=== PATIENT | female | born 1945 | race Caucasian/White ===

== ENCOUNTER 2017-04-29 15:52 | Emergency (ER) | payer BC, MEDICARE ==
[2017-04-29] MEDS ORDERED: PROCHLORPERAZINE INJ 5 MG/ML 2 ML VIAL IV ONE (16:40)
[2017-04-29 17:12] LABS: Hematocrit 27 % (35-47); Mean Corpuscular HGB Conc 33 g/dl (31-36); Mean Corpuscular Hemoglobin 32 pg (27-31); Mean Corpuscular Volume 95 fL (80-97); Mean Platelet Volume 10 um3 (7.4-10.4); Platelet Count 163 10^3/ul (150-450); Red Blood Count 2.85 10^6/ul (4.0-5.4); Red Cell Distribution Width 20 % (10.5-15); White Blood Count 32.5 10^3/ul (3.5-10.8)
[2017-04-29 17:21] LABS: INR 0.95 (0.77-1.02)
[2017-04-29 17:29] LABS: EGFR Non-African American 92.9 (>60)
[2017-04-29] MEDS: NS 0.9% 1000 ML* 2,000 ML IV ONE (17:29)
[2017-04-29 17:47] LABS: Urine Appearance Clear; Urine Blood 1+ (Negative); Urine Color Straw; Urine Ketones Negative (Negative); Urine Protein Negative (Negative); Urine Specific Gravity 1.003 (1.010-1.030); Urine Urobilinogen Negative (Negative)
--- NOTE | 2017-04-29 18:15 | RAD ---
Indication: Abdominal pain. Flat plate of the abdomen demonstrates no free air. No dilated loops of bowel are noted. The colon is filled with stool. IMPRESSION: Stool throughout the colon. Bowel gas pattern is unremarkable.
[2017-04-29 18:20] LABS: ABS Basophils 0.1 10^3/ul (0-0.2); ABS Eosinophils 0 10^3/ul (0-0.6); ABS Lymphocytes 0.5 10^3/ul (1.0-4.8); ABS Monocytes 0.6 10^3/ul (0-0.8); ABS Neutrophils 31.2 10^3/ul (1.5-7.7); ABS Nucleated RBC 0 10^3/ul; Eosinophil % 0.1 % (0-6); Lymphocyte % 1.7 % (25-47); Nucleated Red Blood Cells % 0
[2017-04-29] MEDS ORDERED: Bisacodyl SUPP* 10 MG SUPP PR ONE (19:00)
[2017-04-29] MEDS ORDERED: Magnesium CITRATE* 300 ML BTL PO ONE (19:00)
--- NOTE | 2017-04-29 19:23 | ED ---
Lucila Kelley Nilda, scribed for Maude Casper MD on 04/29/17 at 1649 . Complex/Multi-Sys Presentation - HPI Summary HPI Summary: This patient is a 72 year old F presenting to [facility] accompanied by with a chief complaint of constant palpitations since this morning. Patient reports SOB, constipation (4 days, self-enema yesterday), LLQ pain, dizziness, and chills (last night). Patient denies fever, dyspnea, and CP. Pt states she last urinated a few minutes ago. Patient states similar previous episode of symptoms when pt was Dx with dehydration. The patient rates the pain 7/10 in severity. Symptoms aggravated and alleviated by nothing including stool softener. Medications include Compazine (not taken today). Pt notes in 2000, she had cancer diagnosis in left breast. Last year had recurrence in right axillary lymphnode. She recently had surgery and is now on chemotherapy (last session was 2 days ago). She has O2 Sat at 100% on room air. - History Of Current Complaint Chief Complaint: EDDysrhythmPalp Time Seen by Provider: 04/29/17 16:16 Hx Obtained From: Patient Onset/Duration: Sudden Onset, Lasting Hours, Still Present Timing: Constant Severity Currently: Severe - 7/10 Location: Pain At: - LLQ Aggravating Factor(s): nothing Alleviating Factor(s): nothing Associated Signs And Symptoms: Positive: Other - palpitations, SOB, constipation (4 days, self-enema yesterday), LLQ pain, dizziness, and chills ( last night). Patient denies fever, dyspnea, and CP. Related History: Other - Recent chemo therapy - Allergies/Home Medications Allergies/Adverse Reactions: Allergies Allergy/AdvReac Type Severity Reaction Status Date / Time MS Peanut Oil [Peanut Oil] Allergy Intermediate Difficulty Verified 11/11/16 13: 17 Breathing PMH/Surg Hx/FS Hx/Imm Hx Endocrine/Hematology History: Denies: Hx Diabetes Cardiovascular History: Denies: Hx Hypertension, Hx Pacemaker/ICD History: Denies: Hx Renal Disease Sensory History: Denies: Hx Hearing Aid Psychiatric History: Denies: Hx Panic Disorder - Cancer History Cancer Type, Location and Year: LT BREAST - LUMPECTOMY Hx Chemotherapy: Yes - BREAST Hx Radiation Therapy: No - Surgical History Surgery Procedure, Year, and Place: LT MASTECTOMY - 2000. FOOT - Lt FOOT Infectious Disease History: No Infectious Disease History: Denies: Traveled Outside the [place] in Last 30 Days - Family History Known Family History: Negative: Hypertension, Diabetes Review of Systems Positive: Chills. Negative: Fever Positive: Palpitations. Negative: Chest Pain Positive: Shortness Of Breath, Other - negative dyspnea Positive: Abdominal Pain - diffuse, Other - constipation Neurological: Other - dizziness All Other Systems Reviewed And Are Negative: Yes Physical Exam - Summary Physical Exam Summary: VITAL SIGNS: Reviewed. GENERAL: Patient is a well-developed and nourished female who is anxious and aggressive. Patient is not in any acute respiratory distress. HEAD AND FACE: No signs of trauma. No ecchymosis, hematomas or skull depressions. No sinus tenderness. EYES: PERRLA, EOMI x 2, No injected conjunctiva, no nystagmus. EARS: Hearing grossly intact. Ear canals and tympanic membranes are within normal limits. MOUTH: Oropharynx within normal limits. NECK: Supple, trachea is midline, no adenopathy, no JVD, no carotid bruit, no c- spine tenderness, neck with full ROM. CHEST: Symmetric, no tenderness at palpation LUNGS: Clear to auscultation bilaterally. No wheezing or crackles. CVS: Tachycardic though improved significantly when pt laid down (120bpm reduced to 100bpm), S1 and S2 present, no murmurs or gallops appreciated. ABDOMEN: Soft, mild diffuse tenderness. No signs of distention. No rebound no guarding, and no masses palpated. Bowel sounds are hypoactive. EXTREMITIES: FROM in all major joints, no edema, no cyanosis or clubbing. NEURO: Alert and oriented x 3. No acute neurological deficits. Speech is normal and follows commands. SKIN: Dry and warm Triage Information Reviewed: Yes Vital Signs On Initial Exam: Initial Vitals Temp Pulse Resp BP Pulse Ox 98.7 F 173 18 141/65 100 04/29/17 15:54 04/29/17 15:54 04/29/17 15:54 04/29/17 15:54 04/29/17 15:54 Vital Signs Reviewed: Yes Diagnostics - Vital Signs Vital Signs Temp Pulse Resp BP Pulse Ox 04/29/17 15:54 98.7 F 173 18 141/65 100 - Laboratory Result Diagrams: 04/29/17 17:00 02/24/18 17:00 Lab Statement: Any lab studies that have been ordered have been reviewed, and results considered in the medical decision making process. - Radiology Abd XR Radiology Interpretation Completed By: Radiologist - Abd XR reveals stool throughout the colon. Bowel gas pattern is unremarkable. Dr. Casper has reviewed this radiology report. - EKG 1652 Cardiac Rate: NL EKG Rhythm: Sinus Rhythm - 91 bpm EKG Interpretation: Normal axis. Normal interval. No ischemic changes. Re-Evaluation - Re-Evaluation First Eval Re-Evaluation Time: 18:50 Change: Improved Comment: Pt has leukocytosis because she received Neulasta injection two days ago. Pt feels better after being given 2 L normal saline. Complex Multi-Symp Course/Dx Assessment/Plan: Pt is 72 y/o with Hx of breast CA. Pt is on chemotherapy and came in because she was having palpitations, weakness, and feelings of dehydration. Pt has had similar symptoms in the past with dehydration. Pt also c /o constipation, bloating, and abd pain. Pt feels better after treatment in ER. Pt will be D/C with Dx of constipation and dehydration. - Diagnoses Provider Diagnoses: Dehydration, Constipation Discharge - Discharge Plan Condition: Stable Disposition: HOME Patient Education Materials: Constipation (ED), Dehydration (ED) Referrals: Kyler Asher MD [Primary Care Provider] - 3 Days Additional Instructions: RETURN TO THE EMERGENCY DEPARTMENT FOR CHANGING OR WORSENING SYMPTOMS. The documentation as recorded by the Lucila olivia Nilda accurately reflects the service I personally performed and the decisions made by , Maude Casper MD.
[2017-04-29 20:00] VITALS: BP 124/57
== END 2017-04-29 20:07 | disposition home or self-care (01) ==
LOC: ED 15:52
DX: E86.0 Dehydration (principal); K59.00 Constipation, unspecified; R10.32 Left lower quadrant pain; R00.2 Palpitations; R06.02 Shortness of breath
CPT/HCPCS: 36415; 74019; 80053; 81003; 81015; 82150; 83605; 83690; 83735; 84443; 85025; 85610; 85730; 86140; 93005; 96372; 99283; A9270-GY; J0780

== ENCOUNTER 2017-05-27 16:26 | Observation (INO) | payer MEDICARE ==
[2017-05-27] MEDS ORDERED: NS 0.9% 1000 ML* 1,000 ML IV ONE (18:21)
[2017-05-27 19:00] LABS: Hematocrit 26 % (35-47); Hemoglobin 8.7 g/dl (12.0-16.0); Mean Corpuscular HGB Conc 33 g/dl (31-36); Mean Corpuscular Hemoglobin 33 pg (27-31); Mean Corpuscular Volume 99 fL (80-97); Platelet Count 180 10^3/ul (150-450); Red Blood Count 2.66 10^6/ul (4.0-5.4); Red Cell Distribution Width 18 % (10.5-15); White Blood Count 33.8 10^3/ul (3.5-10.8)
[2017-05-27 19:08] LABS: ABS Basophils 0.2 10^3/ul (0-0.2); ABS Eosinophils 0.1 10^3/ul (0-0.6); ABS Lymphocytes 0.7 10^3/ul (1.0-4.8); ABS Monocytes 0.5 10^3/ul (0-0.8); ABS Neutrophils 32.2 10^3/ul (1.5-7.7); ABS Nucleated RBC 0 10^3/ul; Eosinophil % 0.3 % (0-6); Lymphocyte % 2.1 % (25-47); Nucleated Red Blood Cells % 0
[2017-05-27 19:10] LABS: INR 0.92 (0.77-1.02)
--- NOTE | 2017-05-27 19:14 | RAD ---
HISTORY: Shortness of breath COMPARISONS: None VIEWS: 1: frontal portable view of the chest at 6:53 PM FINDINGS: LINES AND TUBES: A left-sided chest port is noted from a subclavian approach with the tip overlying the superior vena cava. CARDIOMEDIASTINAL SILHOUETTE: The cardiomediastinal silhouette is normal for portable technique. PLEURA: The costophrenic angles are sharp. No pleural abnormalities are noted. LUNG PARENCHYMA: The lungs are clear. ABDOMEN: The upper abdomen is clear. There is no subphrenic gas. BONES AND SOFT TISSUES: There is a scoliotic curvature of the spine. IMPRESSION: LINES AND TUBES ABOVE. NO ACTIVE CARDIOPULMONARY DISEASE.
[2017-05-27 19:17] LABS: EGFR Non-African American 91.2 (>60)
[2017-05-27 20:13] LABS: Urine Appearance Clear; Urine Blood Negative (Negative); Urine Color Yellow; Urine Ketones Negative (Negative); Urine Protein Negative (Negative); Urine Specific Gravity 1.009 (1.010-1.030); Urine Urobilinogen Negative (Negative)
[2017-05-27] MEDS ORDERED: Iohexol 350* (CONTRAST) 500 ML MDV IV ONE (20:14)
[2017-05-27] MEDS ORDERED: Senna TAB PO PRN (20:41)
[2017-05-27] MEDS ORDERED: Acetaminophen TAB* 325 MG PO PRN (20:41)
[2017-05-27] MEDS ORDERED: Al Hydrox/Mg Hydrox/Simet LIQ* 30 ML UDC PO PRN (20:41)
[2017-05-27] MEDS ORDERED: Docusate CAP* 100 MG PO PRN (20:41)
[2017-05-27] MEDS ORDERED: Ondansetron ODT TAB* 4 MG SL PRN (20:45)
[2017-05-27] MEDS ORDERED: Prochlorperazine TAB* 10 MG PO PRN (20:45)
--- NOTE | 2017-05-27 21:41 | RAD ---
HISTORY: Shortness of breath COMPARISONS: PET CT dated November 04, 2016 TECHNIQUE: Multiple contiguous axial CT scans of the chest were obtained after the administration of nonionic intravenous contrast, timed to the pulmonary arterial phase of contrast enhancement.. Coronal and sagittal multiplanar reformations are also submitted for review. FINDINGS: NECK AND THYROID: The lower neck and thyroid are unremarkable. CHEST WALL: There is no lower cervical, axillary, or supraclavicular lymphadenopathy by size criteria. A left-sided chest port is noted. HEART AND PERICARDIUM: The heart is unremarkable. AORTA AND PULMONARY VASCULATURE: There is no pulmonary arterial filling defect to suggest pulmonary embolism. There is no linear filling defect within the aorta to suggest aortic dissection. MEDIASTINUM: There is no mediastinal lymphadenopathy by size criteria. CONRAD: There is no hilar lymphadenopathy by size criteria. AIRWAY AND ESOPHAGUS: The airway is unremarkable, without endobronchial filling defect. The esophagus is grossly normal. LUNG PARENCHYMA: The lungs are clear. PLEURA: No pleural abnormalities are noted. UPPER ABDOMEN: The upper abdomen is unremarkable. BONES AND SOFT TISSUES: Again noted is a paravertebral mass on the right, similar in size and appearance to the previous examination. OTHER: None. IMPRESSION: 1. NO PULMONARY ARTERIAL FILLING DEFECT TO SUGGEST PULMONARY EMBOLISM. 2. STABLE RIGHT PARAVERTEBRAL MASS.
--- NOTE | 2017-05-27 21:42 | ED ---
Savi Kelley Elizabeth, scribed for Phillip Ambrosio on 05/27/17 at 1819 . HPI Cardiac - HPI Summary HPI Summary: The patient is a 72 year old female complaining of heart palpitations that began today. The patient additionally complains of weakness, dehydration, diarrhea, and shortness of breath. Per triage note, the patient also notes dizziness. Patient notes that she has been taking saline solution to clear out her intestines. The patient denies edema in her legs. Patient has been previously diagnosed with stage 3 breast cancer. Patients last chemo session was 2 day ago at [facility]. - History of Current Complaint Chief Complaint: EDDysrhythmPalp Stated Complaint: SOB,RAPID HEATBEAT Time Seen by Provider: 05/27/17 18:00 Hx Obtained From: Patient Onset/Duration: Started Weeks Ago Timing: Constant Current Severity: Mild Pain Intensity: 0 Pain Scale Used: 0-10 Numeric Character: Dyspnea at Rest Associated Signs and Symptoms: Positive: Weakness, Dizziness, Shortness of Breath, Other: - diarrhea, dehydration. Negative: Edema - Allergy/Home Medications Allergies/Adverse Reactions: Allergies Allergy/AdvReac Type Severity Reaction Status Date / Time peanut oil Allergy Difficulty Verified 04/29/17 20:06 Breathing Home Medications: Home Medications Ondansetron ODT TAB* [Zofran 4 MG Odt TAB*] 8 mg PO Q8H PRN 05/27/17 [History Confirmed 05/27/17] Prochlorperazine TAB* [Compazine Tab*] 10 mg PO Q6HR PRN 05/27/17 [History Confirmed 05/27/17] PMH/Surg Hx/FS Hx/Imm Hx Endocrine/Hematology History: Denies: Hx Diabetes Cardiovascular History: Denies: Hx Hypertension, Hx Pacemaker/ICD History: Denies: Hx Renal Disease Sensory History: Denies: Hx Hearing Aid Psychiatric History: Denies: Hx Panic Disorder - Cancer History Cancer Type, Location and Year: LT BREAST - LUMPECTOMY Hx Chemotherapy: Yes - BREAST Hx Radiation Therapy: No - Surgical History Surgery Procedure, Year, and Place: LT MASTECTOMY - 2000. FOOT - Lt FOOT Infectious Disease History: No Infectious Disease History: Denies: Traveled Outside the [place] in Last 30 Days - Family History Known Family History: Negative: Hypertension, Diabetes - Social History Alcohol Use: Rare Substance Use Type: Reports: None Smoking Status (MU): Never Smoked Tobacco Review of Systems Positive: Palpitations Positive: Shortness Of Breath Positive: Diarrhea, Other - dehydration Neurological: Other - dizziness Positive: Weakness All Other Systems Reviewed And Are Negative: Yes Physical Exam - Summary Physical Exam Summary: Appearance: Well appearing, no pain distress Skin: warm, dry, reflects adequate perfusion Head/face: normal Eyes: EOMI, NIKI ENT: normal, dry mucous membranes Neck: supple, non-tender Respiratory: CTA, breath sounds present Cardiovascular: RRR, pulses symmetrical Abdomen: non-tender, soft Bowel: present Musculoskeletal: normal, strength/ROM intact Neuro: normal, sensory motor intact, A&Ox3 Triage Information Reviewed: Yes Vital Signs On Initial Exam: Initial Vitals Temp Pulse Resp BP Pulse Ox 99.0 F 156 22 135/71 100 05/27/17 16:41 05/27/17 16:41 05/27/17 16:41 05/27/17 16:41 05/27/17 16:41 Vital Signs Reviewed: Yes Diagnostics - Vital Signs Vital Signs Temp Pulse Resp BP Pulse Ox 05/27/17 16:41 99.0 F 156 22 135/71 100 - Laboratory Lab Results: Lab Results 05/27/17 05/27/17 05/27/17 Range/Units 18:50 18:50 18:50 WBC 33.8 H (3.5-10.8) 10^3/ul RBC 2.66 L (4.0-5.4) 10^6/ul Hgb 8.7 L (12.0-16.0) g/dl Hct 26 L (35-47) % MCV 99 H (80-97) fL MCH 33 H (27-31) pg MCHC 33 (31-36) g/dl RDW 18 H (10.5-15) % Plt Count 180 (150-450) 10^3/ul MPV 10.0 (7.4-10.4) um3 Neut % (Auto) 95.4 H (38-83) % Lymph % (Auto) 2.1 L (25-47) % Sutter % (Auto) 1.5 (0-7) % Eos % (Auto) 0.3 (0-6) % Baso % (Auto) 0.7 (0-2) % Absolute Neuts (auto) 32.2 H (1.5-7.7) 10^3/ul Absolute Lymphs (auto) 0.7 L (1.0-4.8) 10^3/ul Absolute Monos (auto) 0.5 (0-0.8) 10^3/ul Absolute Eos (auto) 0.1 (0-0.6) 10^3/ul Absolute Basos (auto) 0.2 (0-0.2) 10^3/ul Absolute Nucleated RBC 0 10^3/ul Nucleated RBC % 0 INR (Anticoag Therapy) 0.92 (0.77-1.02) APTT 31.6 (26.0-36.3) seconds D-Dimer, Quantitative 300 H (Less Than 230) ng/mL Sodium (133-145) mmol/L Potassium (3.5-5.0) mmol/L Chloride (101-111) mmol/L Carbon Dioxide (22-32) mmol/L Anion Gap (2-11) mmol/L BUN (6-24) mg/dL Creatinine (0.51-0.95) mg/dL Est GFR ( Amer) (>60) Est GFR (Non-Af Amer) (>60) BUN/Creatinine Ratio (8-20) Glucose (70-100) mg/dL Lactic Acid (0.5-2.0) mmol/L Calcium (8.6-10.3) mg/dL Magnesium (1.9-2.7) mg/dL Total Bilirubin (0.2-1.0) mg/dL AST (13-39) U/L ALT (7-52) U/L Alkaline Phosphatase (34-104) U/L Troponin I (<0.04) ng/mL B-Natriuretic Peptide 199 H ( - 100) pg/mL Total Protein (6.4-8.9) g/dL Albumin (3.2-5.2) g/dL Globulin (2-4) g/dL Albumin/Globulin Ratio (1-3) Urine Color Urine Appearance Urine pH (5-9) Ur Specific [place] (1.010-1.030) Urine Protein (Negative) Urine Ketones (Negative) Urine Blood (Negative) Urine Nitrate (Negative) Urine Bilirubin (Negative) Urine Urobilinogen (Negative) Ur Leukocyte Esterase (Negative) Urine Glucose (Negative) 05/27/17 05/27/17 05/27/17 Range/Units 18:50 18:50 20:05 WBC (3.5-10.8) 10^3/ul RBC (4.0-5.4) 10^6/ul Hgb (12.0-16.0) g/dl Hct (35-47) % MCV (80-97) fL MCH (27-31) pg MCHC (31-36) g/dl RDW (10.5-15) % Plt Count (150-450) 10^3/ul MPV (7.4-10.4) um3 Neut % (Auto) (38-83) % Lymph % (Auto) (25-47) % Sutter % (Auto) (0-7) % Eos % (Auto) (0-6) % Baso % (Auto) (0-2) % Absolute Neuts (auto) (1.5-7.7) 10^3/ul Absolute Lymphs (auto) (1.0-4.8) 10^3/ul Absolute Monos (auto) (0-0.8) 10^3/ul Absolute Eos (auto) (0-0.6) 10^3/ul Absolute Basos (auto) (0-0.2) 10^3/ul Absolute Nucleated RBC 10^3/ul Nucleated RBC % INR (Anticoag Therapy) (0.77-1.02) APTT (26.0-36.3) seconds D-Dimer, Quantitative (Less Than 230) ng/mL Sodium 138 (133-145) mmol/L Potassium 3.7 (3.5-5.0) mmol/L Chloride 106 (101-111) mmol/L Carbon Dioxide 25 (22-32) mmol/L Anion Gap 7 (2-11) mmol/L BUN 15 (6-24) mg/dL Creatinine 0.64 (0.51-0.95) mg/dL Est GFR ( Amer) 117.3 (>60) Est GFR (Non-Af Amer) 91.2 (>60) BUN/Creatinine Ratio 23.4 H (8-20) Glucose 95 (70-100) mg/dL Lactic Acid 1.1 (0.5-2.0) mmol/L Calcium 9.2 (8.6-10.3) mg/dL Magnesium 1.9 (1.9-2.7) mg/dL Total Bilirubin 0.50 (0.2-1.0) mg/dL AST 17 (13-39) U/L ALT 16 (7-52) U/L Alkaline Phosphatase 58 (34-104) U/L Troponin I 0.07 H* (<0.04) ng/mL B-Natriuretic Peptide ( - 100) pg/mL Total Protein 6.3 L (6.4-8.9) g/dL Albumin 3.7 (3.2-5.2) g/dL Globulin 2.6 (2-4) g/dL Albumin/Globulin Ratio 1.4 (1-3) Urine Color Yellow Urine Appearance Clear Urine pH 8.0 (5-9) Ur Specific [place] 1.009 L (1.010-1.030) Urine Protein Negative (Negative) Urine Ketones Negative (Negative) Urine Blood Negative (Negative) Urine Nitrate Negative (Negative) Urine Bilirubin Negative (Negative) Urine Urobilinogen Negative (Negative) Ur Leukocyte Esterase Negative (Negative) Urine Glucose Negative (Negative) Result Diagrams: 05/27/17 18:50 05/27/17 18:50 Lab Statement: Any lab studies that have been ordered have been reviewed, and results considered in the medical decision making process. - Radiology CXR Xray Interpretation: No Acute Changes - IMPRESSION: LINES AND TUBES ABOVE. NO ACTIVE CARDIOPULMONARY DISEASE. Dr. Ambrosio has reviewed this report. Radiology Interpretation Completed By: Radiologist - EKG 16:49 Cardiac Rate: NL - at 98 BPM EKG Rhythm: Sinus Rhythm EKG Interpretation: NSR, no acute changes Disposition - Course Course Of Treatment: The patient presented with heart palpitations and shortness of breath. An EKG reveals NSR at 98 bpm with no acute changes. CXR negative. Dr. Ambrosio has reviewed this radiology report. Bloodwork obtained. In the ED course the patient was given IV fluids. We discussed patient care with Dr. Diaz and they recommended admitting the patient. Patient will be admitted to [facility] with diagnosis of dehydration, elevated troponin, and breast cancer. The patient is agreeable with this plan. - Differential Dx - Cardiopulmonary Differential Diagnoses - Cardiopulmonary: Bronchitis, Chest Wall Pain - pe/ pneumonia, Other - r/o pe - Diagnoses Provider Diagnoses: Dehydration, Elevated troponin, Breast cancer - Physician Notifications Discussed Care Of Patient With: Sara Diaz Instructed by Provider To: Admit As Inpatient Discharge - Sign-Out/Discharge Documenting (check all that apply): Discharge - Discharge Plan Condition: Stable Disposition: ADMITTED TO [facility] - Billing Disposition and Condition Condition: STABLE Disposition: [facility]OSP-[facility] The documentation as recorded by the Savi olivia Elizabeth accurately reflects the service I personally performed and the decisions made by , Phillip Ambrosio.
[2017-05-27] MEDS ORDERED: Aspirin EC Low Dose* 81 MG TAB.EC PO SCH (22:00)
[2017-05-27] MEDS: NS 0.9% 1000 ML* 1,000 ML IV SCH (22:15)
[2017-05-27] MEDS: Heparin VIAL(*) 5000 UNITS/ML VIAL (FIVE THOUSAND) SUBCUT SCH (22:18)
--- NOTE | 2017-05-27 22:37 | PN ---
Progress Note - Progress Note Date of Service: 05/27/17 Note: Per patient her oncologist states that she is not allowed to have aspirin due to the specific chemo she is on. Will hold it for now.
--- NOTE | 2017-05-28 00:41 | HP ---
CC: Kyler Asher MD * HISTORY AND PHYSICAL: DATE OF ADMISSION: 05/27/17 TIME OF EVALUATION: 2100. PRIMARY CARE PHYSICIAN: Kyler Asher MD CHIEF COMPLAINT: Palpitations and shortness of breath. HISTORY OF PRESENT ILLNESS: This is a 72-year-old female with a past medical history of breast cancer, undergoing chemotherapy, presents to the emergency room with palpitations and shortness of breath. The patient states she was diagnosed with breast cancer on the left side 16 years ago, had mastectomy, chemotherapy, and has been on tamoxifen. Her breast cancer returned back in October of last year on the right side. She was living in [place] initially with her first bout of cancer, wanted to return there, and get her care there. So, she has been getting her chemotherapy in [facility]. She drives back and forth. She just got her last chemo, which was done on 05/25/17. She came back yesterday, she has feeling okay. Today, she got up. She felt like she could not get her breath and she was having irregular palpitations with some mild chest discomfort. She states she tried to work through it, made soup, do laundry, but the shortness of breath and palpitations persisted, so her brought her to emergency room for further evaluation. She states that she tries to drink about 2 L of water per day. She has had some lightheadedness and dizziness and she thought this was contributing to her palpitations and shortness of breath. She denies any black stools or blood in her stool. She has not required any transfusion from her chemotherapy in the past. She denies any fever. No URI symptoms. No abdominal pain. No urinary symptoms. No headache. No nausea or vomiting. Otherwise, review of systems is negative. In the emergency room, the patient had labs and imaging and was referred to the hospitalist service for further evaluation. PAST MEDICAL HISTORY: 1. Diagnosed with left-sided breast cancer 17 years ago, status post mastectomy and chemotherapy. She has been on tamoxifen, diagnosed with recurrent breast cancer on the right side with lymph node involvement in October of 2016. Has completed 4 rounds of Adriamycin, Cytoxan, and is now getting 4 rounds of Taxol. She just completed her second round. She also recently had a lymph node resection. She gets her care at [facility]. 2. History of constipation. 3. 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 MEDICATIONS: 1. Compazine and Zofran as needed. 2. She was just on a Neulasta patch, removed yesterday, 05/26/17. 3. Aleve as needed. FAMILY HISTORY: Her mother from diabetes and stroke, age 62. Father at age 67 from coronary artery disease. SOCIAL HISTORY: She lives at home with her , Titi Murguia. He is her healthcare proxy; however, he seems to have not been diagnosed, but appears to have early-onset Alzheimer's. She is a never smoker or alcohol user. She is on vegan diet. Code status is full code. REVIEW OF SYSTEMS: A 14-point review of systems as mentioned in the HPI; otherwise, negative. PHYSICAL EXAMINATION GENERAL: No acute distress, resting comfortably with her at the bedside. VITAL SIGNS: Temp 99, pulse rate 83, respiratory rate 17, oxygen saturation 97 % on room air, blood pressure 119/47. HEENT: Head normocephalic. She has alopecia. Pupils equal and reactive. She is pale. Oropharynx, mucous membranes appear dry. NECK: Supple. No lymphadenopathy. RESPIRATORY: Clear to auscultation. No wheezing, rhonchi, rales. CARDIAC: Regular rate and rhythm. Soft systolic murmur heard throughout. ABDOMEN: Soft, nontender, nondistended. EXTREMITIES: No clubbing, cyanosis, or edema. +1 DPs. NEUROLOGIC: Alert and oriented x3. No gross focal neurologic deficits. DERM: She has a port on the left side of her chest. No surrounding erythema. DIAGNOSTIC STUDIES/LAB DATA: White count 33.8, hemoglobin 8.7, hematocrit 26, platelets 180. INR 0.92, D-dimer 300. Sodium 138, potassium 3.7, chloride 106 , bicarb 25, BUN 15, creatinine 0.64, magnesium 1.9. Troponin 0.07. BNP 199. Albumin 3.7. UA shows specific gravity of 1.009. Radiographic data: Chest x-ray, no active cardiopulmonary disease. EKG shows sinus rhythm with PACs. ASSESSMENT AND PLAN: This is a 72-year-old female with a past medical history of breast cancer, on chemotherapy, who presents to the emergency room with palpitations, shortness of breath. 1. Palpitations, shortness of breath. Assessment: The patient does have a modest bump in her troponin; otherwise, her workup is unremarkable. I am concerned for an underlying pulmonary embolism as she does commute back and forth from [facility] for her cancer care and she just returned yesterday, 05/26/17. She was concerned about dehydration. Based on labs, there are no findings of this. She also has been on Adriamycin in the past, which is cardiotoxic. Plan: We will admit her for observation, place her on telemetry, trend her troponin, follow up on the CTA of the chest, obtain an echocardiogram, and place her on gentle fluids, start her on a baby aspirin. CHRONIC MEDICAL PROBLEMS: 1. Breast cancer, on chemo. Her white count is likely related to her Neulasta. She had an elevated white count when she was here back in April. We will continue her Compazine and Zofran as needed and her bowel regimen as needed. 2. FEN. Regular diet with IV fluids. 3. DVT prophylaxis. The patient scores high risk. Place on heparin subcu t.i.d. unless the CTA shows that she does have a PE. 4. Code status. Full code. PATIENT TIME: Greater than 70 minutes spent doing history and physical, more than half the time spent in direct patient contact. [id number]/[facility] #: [id number] [place]
[2017-05-28] MEDS: Heparin VIAL(*) 5000 UNITS/ML VIAL (FIVE THOUSAND) SUBCUT SCH ×2 (05:48→15:10)
[2017-05-28] MEDS: NS 0.9% 1000 ML* 1,000 ML IV SCH (05:49)
[2017-05-28 06:19] LABS: Hematocrit 25 % (35-47); Hemoglobin 8.1 g/dl (12.0-16.0); Mean Corpuscular HGB Conc 33 g/dl (31-36); Mean Corpuscular Hemoglobin 33 pg (27-31); Mean Corpuscular Volume 99 fL (80-97); Mean Platelet Volume 9.8 um3 (7.4-10.4); Platelet Count 175 10^3/ul (150-450); Red Blood Count 2.49 10^6/ul (4.0-5.4); Red Cell Distribution Width 18 % (10.5-15); White Blood Count 31.9 10^3/ul (3.5-10.8)
[2017-05-28 06:21] LABS: ABS Basophils 0 10^3/ul (0-0.2); ABS Eosinophils 0.2 10^3/ul (0-0.6); ABS Lymphocytes 0.7 10^3/ul (1.0-4.8); ABS Monocytes 0.4 10^3/ul (0-0.8); ABS Neutrophils 30.6 10^3/ul (1.5-7.7); ABS Nucleated RBC 0 10^3/ul; Eosinophil % 0.7 % (0-6); Nucleated Red Blood Cells % 0
[2017-05-28 06:44] LABS: EGFR Non-African American 94.6 (>60)
--- NOTE | 2017-05-28 13:31 | ECHO ---
Patient: AUGUSTA ALMODOVAR [facility] Rec#: [id number] : 1945 Date: 05/28/2017 Age: 72y Height: 149.86 cm / 59.0 in Weight: 55.34 kg / 122.0 lbs Sex: F BSA: 1.49 Room#: 444 Admit Date#: 05/27/2017 Type: Inpatient Referring: Sara Diaz Reading: Nicanor Calderon MD Parking Enforcer: Serene Ambrose RDCS,RDMS CC: Kyler Asher MD Transthoracic Echocardiogram Indication: SOB BP: 118/47 HR: 75 Rhythm: NSR Findings History: Breast cancer, chemotherapy Technical Comments: The study quality is good. Left Ventricle: The left ventricular chamber size is normal. There is no left ventricular hypertrophy. The estimated ejection fraction is 55-60%. There is an E to A reversal in the mitral valve flow pattern suggestive of diastolic dysfunction.Grade 1, nl LAP. Left Atrium: The left atrial chamber size is normal. Right Ventricle: The right ventricular chamber size and systolic function are within normal limits. Right Atrium: The right atrial cavity size is normal. Aortic Valve: The aortic valve is trileaflet. There is no evidence of aortic valve thickening. There is trace to mild aortic regurgitation. There is no evidence of aortic stenosis. Mitral Valve: The mitral valve leaflets are mildly thickened. There is a trace of mitral regurgitation. There is no evidence of mitral stenosis. Tricuspid Valve: The tricuspid valve leaflets are normal. There is trace tricuspid regurgitation. Unable to estimate the right ventricular systolic pressure. Pulmonic Valve: The pulmonic valve structure is not well visualized. There is no evidence of pulmonic regurgitation. Pericardium: There is no significant pericardial effusion. Aorta: The aortic root appears normal. There is no dilatation of the aortic arch. Pulmonary Artery: The main pulmonary artery is not well visualized. Venous: The inferior vena cava appears normal in size. There is a greater than 50% respiratory change in the inferior vena cava dimension. Summary: There was not any prior study for comparison. Conclusions The estimated ejection fraction is 55-60%. There is an E to A reversal in the mitral valve flow pattern suggestive of diastolic dysfunction. Grade 1, normal LAP. There is trace to mild aortic regurgitation. There is a trace of mitral regurgitation. Measurements Name Value Normal Range RVIDd (AP) 2D 2 cm (0.9 - 2.6) RVDdMajor (2D) 1.2 cm (2.2 - 4.4) RAd ISD 4CH 4.2 cm (3.4 - 4.9) RA (A4C)W 2.4 cm (2.9 - 4.6) IVSd (2D) 0.8 cm (0.6 - 1) LVPWd (2D) 0.9 cm (0.6 - 1) LVIDd (2D) 4.3 cm (3.6 - 5.4) LVIDs (2D) 3.2 cm - LV FS (2D) 26 % (25 - 45) Aortic Annulus 2 cm (1.4 - 2.6) Ao root diameter (2D) 3.3 cm (2.1 - 3.5) Ascending Ao 3 cm (2.1 - 3.4) Aortic arch 3.4 cm (1.8 - 3.4) LA dimension (AP) 2D 3.2 cm (2.3 - 3.8) LAd ISD 4CH 4.4 cm (2.9 - 5.3) LA ISD 4CH W 3.7 cm (2.5 - 4.5) Name Value Normal Range LA ESV SP 4CH (A/L) 35.39 ml - LA ESV SP 4CH (MOD) 31.31 ml - Name Value Normal Range MV E-wave Vmax 0.7 m/sec - MV deceleration time 202 msec - MV A-wave Vmax 1 m/sec - MV E:A ratio 0.7 ratio - P. vein S-wave Vmax 0.5 m/sec - P. vein D-wave Vmax 0.3 m/sec - P. vein S:D Vmax ratio 1.7 ratio - P. vein A-wave duration 114 msec - LV septal e' Vmax 0.07 m/sec - LV lateral e' Vmax 0.08 m/sec - LV E:e' septal ratio 10 ratio - LV E:e' lateral ratio 9 ratio - Name Value Normal Range AV Vmax 1.5 m/sec - AV VTI 28 cm - AV peak gradient 9 mmHg - AV mean gradient 4.4 mmHg - LVOT Vmax 1 m/sec - LVOT VTI 22.3 cm - LVOT peak gradient 4 mmHg - LVOT mean gradient 2.1 mmHg - AR PHT 461.27 msec - AR peak gradient 43.45 mmHg - SOMMER Vmax 0.7 m/sec - Name Value Normal Range RAP 8 mmHg - IVC diameter 1.8 cm - Name Value Normal Range PV Vmax 0.9 m/sec - PV peak gradient 3.2 mmHg -
[2017-05-28 13:37] VITALS: BP 118/53
--- NOTE | 2017-05-29 05:07 | DS ---
CC: Dr. Kyler Asher; Dr. Stephen Carney * DISCHARGE SUMMARY: DATE OF ADMISSION: 05/27/17 DATE OF DISCHARGE: 05/28/17 PRIMARY CARE PROVIDER: Dr. Kyler Asher. PRIMARY ONCOLOGIST: Dr. Stephen Carney at [facility]. MY ATTENDING WHILE IN THE HOSPITAL: Dr. Denis Figueroa.* (DICTATED BY KAREL GOVEA) PRIMARY DISCHARGE DIAGNOSES: 1. Palpitations. 2. Dehydration. 3. Shortness of breath. 4. Anemia. SECONDARY DISCHARGE DIAGNOSES: 1. Breast cancer. 2. Peripheral neuropathy. STUDIES DONE WHILE IN THE HOSPITAL: Electrocardiogram from 05/27/17 shows frequent PACs, normal axis, normal sinus rhythm, no ST segment abnormalities, QTc 436 and rate of 98, no blocks, hypertrophy, or enlargement, no other abnormalities. Chest x-ray from 05/27/17 shows lines and tubes as above, no active cardiopulmonary disease. Chest thorax CTA from 05/27/17 read as no pulmonary arterial filling defect, just pulmonary embolism, stable right paravertebral mass. A transthoracic echocardiogram from 05/27/17 read as estimated ejection fraction 55% to 60%, there is an E/A reversal, mitral valve flow pattern suggestive of diastolic dysfunction grade 1, normal LAP, there is [id number] aortic regurgitation, there is trace mitral regurgitation. MEDICATIONS AT DISCHARGE: 1. Compazine 10 mg p.o. q.6h. as needed. 2. Zofran 8 mg p.o. q.8h. as needed. 3. Tylenol 650 mg p.o. q.4h. as needed. Has a new medication on discharge: Tylenol. HOSPITAL COURSE: This is a brief summary of the patient's presentation. For more details, please see the history and physical from Dr. Sara Diaz on . In brief, the patient is a 72-year-old female with past medical history significant for the above, who came back from chemotherapy at [facility] [place] on 05/26/17 after having her last dose of chemo with Cytoxan on 05/25/17. The patient had 4 rounds of Adriamycin and Cytoxan and is now on round 2 of 4 of Taxol. The patient on her previous when she initially was diagnosed with breast cancer 16 years ago, she had also had doses of Adriamycin, but she cannot remember other chemotherapies. The patient on the day of admission had shortness of breath and palpitations with mild chest discomfort, but did not rest and the shortness of breath and palpitations worsened. The patient drinks 2 L of water a day, notes no change in her urine. She has had no black stools or blood in her stool. The patient states that she felt similarly to this in the emergency department when she came on . The patient's previous episode also occurred after chemotherapy administration. The patient came to the hospital and received 2 L of IV fluids. The patient felt much better overnight with the infusion of IV fluids. The patient's telemetry showed no persistent ectopic activity. The patient had no chest pain. The patient had no shortness of breath with exertion. The patient's transthoracic echocardiogram was read as above. The patient when she came to the hospital had white blood cell count of 33.8 and hemoglobin 8.7. The patient had a Neulasta patch, which was taken off on 05/26/17, and this white blood cell count is consistent with her white blood cell count from when she was seen for this same complaint. The patient had a D-dimer, which was elevated at 300, but negative CTA of the chest. The patient had elevated BUN to creatinine ratio. The patient had a slightly elevated troponin at 0.07, 0.09, 0.09 and slightly elevated BNP. The patient had no urinary symptoms. The patient's hemoglobin dropped from 8.7 to 8.1 on second day of her admission. This was after receiving almost 2 L of fluid. The patient's white blood cell count was stable. The patient had no other electrolyte abnormalities and a decreased BUN to creatinine ratio on 05/28/17. The patient states she felt better and was comfortable going home on 05/28/17. PHYSICAL EXAMINATION ON DAY OF DISCHARGE: General: The patient is a 72-year- old female, who appears stated age and sitting comfortably in the chair in no acute distress. Vital signs at time of discharge; temperature 99.7, pulse rate 78, respiratory rate 16, oxygen saturation 100, and blood pressure 118/53. HEENT: Head normocephalic, atraumatic. Sclerae anicteric. No conjunctival injection. Nasal mucosa moist. Oral mucosa moist. No pharyngeal erythema, discharge or exudate. Neck: Supple, nontender. No lymphadenopathy. No carotid bruit auscultated. Cardiac: Regular rate and rhythm. No clicks, murmurs, gallops or rubs. Pulses 2+ in the bilateral dorsalis pedis and posterior tibialis and radial areas. Nondisplaced PMI. No S1 or S2 present. Respiratory: Clear to auscultation bilaterally. No wheezes, rales, or rhonchi. Good air exchange bilaterally. Abdomen: Soft, nontender, nondistended. Bowel sounds present, normoactive in all 4 quadrants. No hepatosplenomegaly. No abdominal bruits auscultated. Genitourinary: No suprapubic or CVA tenderness. Skin: Clean, dry, and intact. No rash. The patient has alopecia probably to chemotherapy. Neuro: Cranial nerves II through XII intact. No focal deficits. Alert and oriented x3. Normal gait. Psychiatric: Very pleasant, cooperative. LABORATORY DATA: On the day of discharge; white blood cell count 31.9, hemoglobin 8.1, MCV 99, MCH 33, RDW 18, neutrophil percent 95.9. Sodium 140, potassium 4.0, chloride 111, carbon dioxide 24, anion gap 5, BUN 10, creatinine 0.62, glucose 82, calcium 8.6. All other pertinent laboratory data from admission; BNP on admission 119, troponin 0.07, 0.09, 0.09. D-dimer 300, ABG 31.9, INR 0.92. Benign urine. DISCHARGE PLAN: The patient will be discharged to home with the help of her . The patient has been instructed to limit activity on days after she receives chemotherapy to rest and drink plenty of fluids. The patient appears dehydrated despite drinking plenty of water. The patient was instructed to drink electrolytes as well to help maintain her intravascular volume. The patient should have a repeat CBC done in 5 days to monitor her anemia, which will be sent to her primary care provider and her oncologist. The patient should return to hospital for alarming symptoms such as chest pain, shortness of breath, syncope, or persistent palpitations. The patient should continue with her chemotherapy regimen per her oncologist. The patient should otherwise engage in activities as tolerated and have a regular unrestricted diet without trying to avoid excessive caffeine. TIME SPENT: Approximately 60 minutes was spent on this discharge, 30 of which was spent [id number] with the patient obtaining history and physical and discussing treatment plan. KAREL GOVEA [id number]/YARELI #: [id number] ROSEMARY
== END 2017-05-28 16:19 | disposition home or self-care (01) ==
LOC: ED 16:26 → MEDTELE 20:41
PROVIDERS: ADMIT Pediatrics; ATTEND Pediatrics
DX: R00.2 Palpitations (principal); E86.0 Dehydration; R06.02 Shortness of breath; C50.919 Malignant neoplasm of unspecified site of unspecified female breast; D64.9 Anemia, unspecified; G62.9 Polyneuropathy, unspecified; Z79.899 Other long term (current) drug therapy; R07.9 Chest pain, unspecified; R74.8 Abnormal levels of other serum enzymes; I49.1 Atrial premature depolarization
CPT/HCPCS: 36415; 71045; 71275; 80048; 80053; 81003; 83605; 83735; 83880; 84484; 85025; 85379; 85610; 85730; 93005; 93306; 96360; 96361; 99284; A9270-GY; G0378; J1642; Q9967

== ENCOUNTER 2018-06-12 09:17 | Emergency (ER) | payer MEDICARE ==
--- NOTE | 2018-06-12 09:37 | ED ---
Syncope/Near Syncope - HPI Summary HPI Summary: A 73 y/o female brought in by ambulance presents to [facility] with a chief complaint of a syncopal episode earlier today. She reports that she was having breakfast with her when an argument escalated. She then left the room and then had a syncopal episode. She doesn't remember the fall, but believes that she lost consciousness for a few seconds. She reports some palpitations before her syncopal episode. She then was woken up by her and had left shoulder pain. At triage she rated her pain as a 9/10 in severity. - History Of Current Complaint Chief Complaint: EDSyncope Time Seen by Provider: 06/12/18 09:18 Hx Obtained From: Patient, EMS Onset/Duration: Sudden Onset, Lasting Minutes, Resolved Timing: Intermittent Episode Lasting - 1 episode lasting seconds Context: Other - was presents, but maybe didn't witness the fall Activity At Onset: Other - standing Associated Head Trauma: No Aggravating Factor(s): Nothing Alleviating Factor(s): Nothing Associated Signs And Symptoms: Other - shoulder pain - Allergies/Home Medications Allergies/Adverse Reactions: Allergies Allergy/AdvReac Type Severity Reaction Status Date / Time peanut oil Allergy Difficulty Verified 04/29/17 20:06 Breathing Home Medications: Home Medications Naproxen Sodium [Aleve] 440 mg PO TID PRN 06/12/18 [History Confirmed 06/12/18] PMH/Surg Hx/FS Hx/Imm Hx Endocrine/Hematology History: Denies: Hx Diabetes Cardiovascular History: Denies: Hx Hypertension, Hx Pacemaker/ICD History: Denies: Hx Renal Disease Sensory History: Denies: Hx Contacts or Glasses, Hx Hearing Aid Opthamlomology History: Denies: Hx Contacts or Glasses Psychiatric History: Denies: Hx Panic Disorder - Cancer History Cancer Type, Location and Year: LT BREAST - mastectomy. right breast lymph nodes removed Hx Chemotherapy: Yes - BREAST Hx Radiation Therapy: No - Surgical History Surgery Procedure, Year, and Place: LT MASTECTOMY - 2000. FOOT - Lt FOOT. right breast lymphedectomy Infectious Disease History: No Infectious Disease History: Denies: Traveled Outside the [place] in Last 30 Days - Family History Known Family History: Negative: Hypertension, Diabetes - Social History Alcohol Use: Rare Substance Use Type: Reports: None Smoking Status (MU): Never Smoked Tobacco Review of Systems Negative: Fever Positive: Palpitations Positive: Arthralgia - left shoulder Positive: Syncope All Other Systems Reviewed And Are Negative: Yes Physical Exam - Summary Physical Exam Summary: GENERAL: Patient is a well-developed and nourished F who is lying comfortable in the stretcher. Patient is not in any acute respiratory distress. HEAD AND FACE: Normocephalic EYES: PERRLA, EOMI x 2. EARS: Hearing grossly intact. MOUTH: Oropharynx within normal limits. NECK: Supple, trachea is midline, no adenopathy, no JVD, no carotid bruit. CHEST: Symmetric, no tenderness at palpation LUNGS: Clear to auscultation bilaterally. No wheezing or crackles. CVS: Regular rate and rhythm, S1 and S2 present, no murmurs or gallops appreciated. ABDOMEN: Soft, non-tender. Bowel sounds are normal. No abdominal abnormal pulsations. EXTREMITIES: TTP left shoulder. Full ROM in all major joints, no edema, no cyanosis or clubbing. NEURO: Alert and oriented x 3. No acute neurological deficits. Speech is normal and follows commands. SKIN: Dry and warm Triage Information Reviewed: Yes Vital Signs On Initial Exam: Initial Vitals Temp Pulse Resp BP Pulse Ox 97.8 F 62 16 151/67 100 06/12/18 09:23 06/12/18 09:23 06/12/18 09:23 06/12/18 09:23 06/12/18 09:23 Vital Signs Reviewed: Yes Diagnostics - Vital Signs Vital Signs Temp Pulse Resp BP Pulse Ox 06/12/18 09:37 62 158/74 06/12/18 09:23 97.8 F 62 16 151/67 100 - Laboratory Result Diagrams: 06/12/18 09:49 06/12/18 09:49 Lab Statement: Any lab studies that have been ordered have been reviewed, and results considered in the medical decision making process. - Radiology shoulder x-ray Radiology Interpretation Completed By: Radiologist Summary of Radiographic Findings: 1. OSTEOPENIA. 2. OSTEOARTHRITIS. 3. NO ACUTE OSSEOUS INJURY. THE DEGREE OF OSTEOPENIA MAY MAKE A NONDISPLACED FRACTURE. RADIOGRAPHICALLY OCCULT. IF SYMPTOMS PERSIST, RECOMMEND REPEAT IMAGING. ED physician has reviewed this imaging report. CXR Radiology Interpretation Completed By: Radiologist Summary of Radiographic Findings: NO EVIDENCE FOR ACUTE FINDING. ED physician has reviewed this imaging report. - CT Brain CT Interpretation Completed By: Radiologist Summary of CT Findings: NO ACUTE INTRACRANIAL PATHOLOGY. ED physician has reviewed this imaging report. - EKG 09:53 Cardiac Rate: Bradycardia - 57 bpm EKG Rhythm: Sinus Bradycardia Summary of EKG Findings: Sinus bradycardia at 57 bpm, normal intervals, no ischemic changes Re-Evaluation - Re-Evaluation First Eval Re-Evaluation Time: 11:31 Change: Unchanged Comment: Discussed results and plan for admission. Course/Dx Course Of Treatment: A 73 y/o female brought in by ambulance presents to [facility] with a chief complaint of a syncopal episode earlier today. She also reports left shoulder pain after her episode and palpitations before her syncopal episode. The physical exam showed TTP left shoulder. EKG at 09:53 showed Sinus bradycardia at 57 bpm, normal intervals, no ischemic changes. Brain CT impression: NO ACUTE INTRACRANIAL PATHOLOGY. Shoulder x-ray: 1. OSTEOPENIA. 2. OSTEOARTHRITIS. 3. NO ACUTE OSSEOUS INJURY. THE DEGREE OF OSTEOPENIA MAY MAKE A NONDISPLACED FRACTURE. RADIOGRAPHICALLY OCCULT. IF SYMPTOMS PERSIST, RECOMMEND REPEAT IMAGING. CXR impression: NO EVIDENCE FOR ACUTE FINDING. The patient will be admitted. Case discussed with Dr. Gill, hospitalist. I discussed results with patient. The patient agrees with this plan. When the hospitalist was at bedside the patient changed her mind, wanting to leave to take care of her . A social science manager was brought in to talk with the patient but the patient was still adamant about leaving AMA. We discussed risks of leaving AMA and the patient appeared alert, oriented and capable of making her own decisions. She then left AMA. - Diagnoses Provider Diagnoses: Syncope - Physician Notifications Discussed Care of Patient With: Rita Gill Time Discussed With Above Provider: 11:44 Instructed by Provider To: Admit As Inpatient Discharge - Sign-Out/Discharge Documenting (check all that apply): Patient Departure - AMA Patient Received Moderate/Deep Sedation with Procedure: No - Discharge Plan Condition: Fair Disposition: AGAINST MEDICAL ADVICE Referrals: Kyler Asher MD [Primary Care Provider] - - Billing Disposition and Condition Condition: FAIR Disposition: Against Medical Advice - Attestation Statements Document Initiated by Scribe: Yes Documenting Scribe: Rosalio Mota Provider For Whom Scribe is Documenting (Include Credential): Rian Beckham MD Scribe Attestation: I, Rosalio Mota, scribed for Rian Beckham MD on 06/13/18 at 1233. Scribe Documentation Reviewed: Yes Provider Attestation: The documentation as recorded by the scriboRsalio quiroz accurately reflects the service I personally performed and the decisions made by me, Sharan Beckham MD Status of Scribe Document: Viewed
[2018-06-12] MEDS ORDERED: NS 0.9% 1000 ML** 1,000 ML IV ONE (09:41)
[2018-06-12] MEDS ORDERED: Acetaminophen TAB* 325 MG PO ONE (09:41)
[2018-06-12 10:01] LABS: Urine Appearance Clear; Urine Bilirubin Negative (Negative); Urine Blood Negative (Negative); Urine Color Yellow; Urine Glucose Negative (Negative); Urine Ketones Negative (Negative); Urine Nitrite Negative (Negative); Urine Protein Negative (Negative); Urine Specific Gravity 1.009 (1.010-1.030); Urine Urobilinogen Negative (Negative)
[2018-06-12 10:11] LABS: ABS Lymphocytes 0.9 10^3/ul (1.0-4.8); ABS Neutrophils 3.2 10^3/ul (1.5-7.7); Hematocrit 37 % (33-41); Hemoglobin 12.4 g/dL (12.0-16.0); Mean Corpuscular HGB Conc 34 g/dL (31-36); Mean Corpuscular Hemoglobin 32 pg (27-31); Mean Corpuscular Volume 95 fL (80-97); Mean Platelet Volume 9.7 fL (7.4-10.4); Platelet Count 189 10^3/uL (150-450); Red Blood Count 3.87 10^6 /uL (3.70-4.87); Red Cell Distribution Width 14 % (10.5-15); White Blood Count 4.6 10^3/uL (3.5-10.8)
[2018-06-12 10:12] LABS: ABS Basophils 0 10^3/ul (0-0.2); ABS Eosinophils 0.1 10^3/ul (0-0.6); ABS Monocytes 0.4 10^3/ul (0-0.8); ABS Nucleated RBC 0 10^3/ul; Eosinophil % 1.7 %; Lymphocyte % 18.7 %; Nucleated Red Blood Cells % 0.1
[2018-06-12 10:16] LABS: Activated Partial Thrombo Time 30.9 seconds (26.0-36.3); INR 0.83 (0.77-1.02)
[2018-06-12 10:50] LABS: Albumin 4.2 g/dL (3.2-5.2); Calcium 9.6 mg/dL (8.6-10.3); Magnesium 1.9 mg/dL (1.9-2.7); Potassium 3.8 mmol/L (3.5-5.0); Total Bilirubin 0.6 mg/dL (0.2-1.0)
[2018-06-12 10:55] LABS: Albumin/Globulin Ratio 1.4 (1-3); BUN/Creatinine Ratio 27.1 (8-20); EGFR African American 99.2 (>60); Globulin 2.9 g/dL (2-4); Total Protein 7.1 g/dL (6.4-8.9)
[2018-06-12 11:28] LABS: TSH (Thyroid Stimulating Horm) 2.39 mcIU/mL (0.34-5.60)
--- NOTE | 2018-06-12 13:49 | CONS ---
CC: Dr. Dupree* CONSULTATION REPORT: ADDENDUM: DATE OF CONSULTATION: 06/12/18. PRIMARY CARE PROVIDER: Dr. Dupree. HISTORY OF PRESENT ILLNESS: Ms. Garcia is a 73-year-old lady with a past medical history of left-sided breast CA 17 years ago, status post mastectomy and chemotherapy, on tamoxifen, diagnosed with recurrent breast cancer on the right in October 2016, completed 4 rounds of Adriamycin and Cytoxan and also got 4 rounds of Taxol. She follows at the [facility] [place]. She also has history of peripheral neuropathy secondary to chemotherapy, who presented to the emergency room after a syncopal episode. As per her report, the patient was having an argument with her , who has dementia, and the next thing she remembers is being on the garage floor and complaining of left shoulder pain. The case was reviewed and discussed with KAREL Keating, and original plan was to have the patient admitted for further workup. Her labs were reviewed as well as her radiology studies and EKG, but unfortunately the patient stated that she cannot be admitted. She is under a great amount of stress due to her 's dementia, the fact that she is selling her home and in the process of moving to [place] to be near family. We talked about her staying overnight to have further workup. I told her that we suspect her episode was vasovagal, but with an incomplete workup, we cannot rule out life- threatening diseases including a heart attack or another serious arrhythmia. The patient is alert, awake, and oriented x3, and I believe that she has the capacity to sign out against medical advice. She was advised that she should return to the nearest emergency room if she develops symptoms. She states that she will follow up with Dr. Dupree as soon as possible, so he could complete her workup as outpatient considering even an echocardiogram or a Holter monitor in the outpatient setting. 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 [id number]/[facility] #: [id number] [facility] HOSPITALGayal
--- NOTE | 2018-06-12 14:31 | CONS ---
CC: Anthony Dupree MD* CONSULTATION REPORT: DATE OF CONSULTATION: 06/12/18 PRIMARY CARE PROVIDER: Anthony Dupree MD ATTENDING PHYSICIAN: Rita Dai MD* (dictated by KAREL Keating). CHIEF COMPLAINT: 1. Syncope. 2. Left shoulder pain. HISTORY OF PRESENT ILLNESS: Ms. Garcia is a 73-year-old female with past medical history of breast cancer, who presented to the ER today via ambulance after a syncopal episode. The patient states that her and her , who has dementia, were having a heated discussion. She was advised that when this happens to slowly and quietly walk into the next room to avoid further confrontation. When she did this, her started to walk towards her quickly. She states that despite knowing that she would not be harmed by him, she became scared. She started to hyperventilate and became dizzy. She notes that she reached for a chair, and then lost consciousness. She states that she believes she was unconscious for 2 to 3 minutes, but is unsure of the amount of time. She awoke on her left side with the headache and left shoulder pain. She is unsure if she hit her head or not. The patient states that she has no prior history of syncopal events. She denies dizziness or lightheadedness with standing. She denies a history of seizures. She does and continues to have palpitations with excitement since chemo at the beginning of 2018 which lasted 4 months. She denies palpitations at rest. She denies chest pain or shortness of breath. She describes an increase in the amount of stress in her life at this point in time. She states that she has been attempting to sell her home in [place] and to move back to [place], where her oncologist and exhibition carver are as well as family and friends. The patient states that it has been difficult recently taking care of her who again has dementia. She states that she does not have social support in the area. With all of this stress, she believes that she has become overwhelmed which caused this event. While in the ER, the patient received a full workup which included chest x-ray, left shoulder x-ray, head CT, 1 L of normal saline, and acetaminophen. The hospitalist team were asked to evaluate the patient for admission. PAST MEDICAL HISTORY: History of breast cancer x2. PAST SURGICAL HISTORY: Left mastectomy in 2000; right axillary lymph node removal - multiple in 2018 followed by 4 months of chemo and 6 weeks of radiation, left foot. HOME MEDICATIONS: Aleve p.r.n. ALLERGIES: PEANUT OIL, difficulty breathing. FAMILY HISTORY: Positive for atherosclerosis, CVA, diabetes. SOCIAL HISTORY: The patient has never used tobacco. She states she drinks wine occasionally. She lives with her who has dementia. They currently live in [place] and are attempting to sell their home in order to move back to [place]. At this time, she will not appoint a surrogate decision maker. REVIEW OF SYSTEMS: A 10-point review of systems was performed and all the pertinent positives and negatives are in the HPI. All other systems are negative. PHYSICAL EXAM: General: Ms. Garcia is a well-developed, well-nourished, healthy- looking white woman who is sitting up in bed. She is in no acute distress. Vital Signs: Temperature 97.8 temporal, heart rate 58, respiratory rate 17, oxygen saturation 100% on room air, blood pressure 157/66. HEENT: Visual avery are grossly intact. Pupils are equally round and reactive to light. Extraocular movements are intact. Sclerae are without icterus. Hearing is grossly intact. Oral mucous membranes are moist. There are no lesions. Pharynx is clear. Neck: With full range of motion. Trachea at midline. There is no lymphadenopathy. Cardiovascular: Regular rate and rhythm with S1, S2 present. There is a slight systolic murmur. There are no rubs or gallops. There is no JVD. Respiratory: Symmetrical chest expansion with no use of accessory muscles. Lungs are clear to auscultation. There are no rhonchi, wheezes, or rubs. Abdomen: Bowel sounds in all quadrants. The abdomen is soft and nontender to palpation. There is no hepatosplenomegaly. Musculoskeletal: Full range of motion with no pain or deformities. Extremities : Skin is warm and smooth bilaterally. There is no edema, clubbing, or cyanosis. Radial and pedal pulses are palpable. Neuro: The patient is awake. She is alert and oriented. She is able to move all her extremities. DIAGNOSTIC STUDIES/LAB DATA: [facility] CT, 06/12/18, impression: No acute intracranial pathology. Left shoulder x-ray, 06/12/18, impression: Osteopenia, osteoarthritis. No acute osseous injury. The degree of osteopenia may make a nondisplaced fracture radiographically occult. If symptoms persist, recommend repeat imaging. Chest x-ray, 06/12/18, no evidence for acute findings. WBC 4.6, RBC 3.87, HGB 12.4, HCT 37, platelets 189. Sodium 140, potassium 3.8, chloride 107, carbon dioxide 25, anion gap 8, BUN 19, creatinine 0.70. Glucose 89, lactic acid 2.0, magnesium 1.9. Troponin 0.00. BNP 71. TSH 2.39. ASSESSMENT AND PLAN: Ms. Garcia is a 73-year-old female with past medical history of breast cancer who presents to the ER today after a syncopal event. It is likely that this was due to a vasovagal reaction, but other causes cannot be ruled out without more information. The patient was encouraged to stay overnight. She would be placed on telemetry to monitor for arrhythmias. A repeat EKG would be performed in the morning. Orthostatic blood pressures would be performed. An echocardiogram would be scheduled for the morning. The patient is not interested in spending the night and would prefer to leave against medical advice. We discussed the risk of leaving against medical advice which include a repeat episode of syncope, injury, disability, or even . The patient still wishes to leave against medical advice. At the current time, a social work consult has been placed in order to determine if there is any way to help the patient with her psychosocial concerns at this time. She was also strongly encouraged to see her primary care provider as soon as possible for referral for an echocardiogram. It is noted on physical exam that she has a slight systolic murmur. She does state that she has had this since she was a teenager. Her last echo was in May 2017 and revealed ejection fraction within normal limits, trace aortic and mitral regurgitation. TIME SPENT: Approximately 35 minutes were spent on this consultation, greater than half that time was spent with the patient and her obtaining history , performing a physical, and reviewing the plan of care. The case has been reviewed with my attending, Dr. Dai, who is in agreement with the plan of care. KAREL PARIS [id number]/[facility] #: [id number] CC: Dr. Dupree* ADDENDUM TO CONSULTATION REPORT: DATE OF CONSULTATION: 06/12/18. PRIMARY CARE PROVIDER: Dr. Dupree. HISTORY OF PRESENT ILLNESS: Ms. Garcia is a 73-year-old lady with a past medical history of left-sided breast CA 17 years ago, status post mastectomy and chemotherapy, on tamoxifen, diagnosed with recurrent breast cancer on the right in October 2016, completed 4 rounds of Adriamycin and Cytoxan and also got 4 rounds of Taxol. She follows at the [facility] [place]. She also has history of peripheral neuropathy secondary to chemotherapy, who presented to the emergency room after a syncopal episode. As per her report, the patient was having an argument with her , who has dementia, and the next thing she remembers is being on the garage floor and complaining of left shoulder pain. The case was reviewed and discussed with KAREL Keating, and original plan was to have the patient admitted for further workup. Her labs were reviewed as well as her radiology studies and EKG, but unfortunately the patient stated that she cannot be admitted. She is under a great amount of stress due to her 's dementia, the fact that she is selling her home and in the process of moving to [place] to be near family. We talked about her staying overnight to have further workup. I told her that we suspect her episode was vasovagal, but with an incomplete workup, we cannot rule out life- threatening diseases including a heart attack or another serious arrhythmia. The patient is alert, awake, and oriented x3, and I believe that she has the capacity to sign out against medical advice. She was advised that she should return to the nearest emergency room if she develops symptoms. She states that she will follow up with Dr. Dupree as soon as possible, so he could complete her workup as outpatient considering even an echocardiogram or a Holter monitor in the outpatient setting. 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 Rita Dai MD [id number]/[facility] #: [id number] [place]
[2018-06-12 16:22] VITALS: BP 138/64
== END 2018-06-12 16:35 | disposition left against medical advice (07) ==
LOC: ED 09:17
DX: R55 Syncope and collapse (principal); M25.512 Pain in left shoulder; Z85.3 Personal history of malignant neoplasm of breast; R00.1 Bradycardia, unspecified; Z90.12 Acquired absence of left breast and nipple; M85.80 Other specified disorders of bone density and structure, unspecified site; M19.90 Unspecified osteoarthritis, unspecified site
CPT/HCPCS: 36415; 70450; 71046; 80053; 81003; 83605; 83735; 83880; 84443; 84484; 85025; 85610; 85730; 93005; 96360; 99284; A9270-GY